=== PATIENT | male | born 1935 | race Caucasian/White ===

== ENCOUNTER 2017-12-09 11:52 | Inpatient (IN) | payer MEDICARE ==
[~2017-12-09] VITALS: Ht 180.3 cm; Wt 79.4 kg
[2017-12-09] MEDS ORDERED: IV NS 0.9% 500 ML BAG IV ONE (12:30)
[2017-12-09 12:41] LABS: BASOPHILS % (AUTO) 0.6 % (0.0-2.0); EOSINOPHILS % (AUTO) 1.4 % (0.0-6.0); HEMATOCRIT 38 % (39-51); HEMOGLOBIN 12.6 g/dL (13.5-17.5); LYMPHOCYTES # (AUTO) 0.5 /CMM (0.8-4.8); MEAN CORPUSCULAR HGB CONC 33 g/dl (31.0-36.0); MEAN CORPUSCULAR VOLUME 83 fL (80-96); MONOCYTES # (AUTO) 0.8 /CMM (0.1-1.30); MONOCYTES % (AUTO) 19.7 % (2.0-12.0); NEUTROPHILS # (AUTO) 2.8 /CMM (1.8-8.9); NEUTROPHILS % (AUTO) 65.3 % (43.0-81.0); PLATELET COUNT (AUTO) 183 /CMM (150-450); RDW COEFFICIENT OF VARIATION 17.7 (11.5-15.0); RED BLOOD CELL COUNT(AUTO) 4.61 MIL/uL (4.5-6.0); WHITE BLOOD COUNT (AUTO) 4.2 K/uL (4.3-11.0)
[2017-12-09 12:51] LABS: CARBON DIOXIDE 25 mmol/L (21-32); CHLORIDE 105 mmol/L (98-107); CREATININE 1.4 mg/dL (0.6-1.3); GLUCOSE 175 mg/dL (74-106); POTASSIUM 4.2 mmol/L (3.5-5.1); SODIUM SERUM 139 mmol/L (136-145); UREA NITROGEN, BLOOD 29 mg/dL (7-18)
[2017-12-09 12:55] LABS: INR 1.22 (0.85-1.15)
[2017-12-09 12:58] LABS: ALANINE AMINOTRANSFERASE 21 U/L (12-78); ALBUMIN 3.4 g/dL (3.4-5.0); ALKALINE PHOSPHATASE 195 U/L (46-116); ASPARTATE AMINOTRANSFERASE 26 U/L (15-37); BILIRUBIN,DIRECT 0.6 mg/dL (0.0-0.2); BILIRUBIN,TOTAL 1.2 mg/dL (0.2-1.0); TOTAL PROTEIN, SERUM 7.6 g/dL (6.4-8.2)
[2017-12-09 13:01] LABS: TROPONIN I 0.046 ng/mL (0.00-0.056)
[2017-12-09 13:10] LABS: SERUM AMMONIA 16 umol/L (11-32)
[2017-12-09] MEDS ORDERED: FAMO20TA8 PO (13:11)
[2017-12-09] MEDS ORDERED: ROSU10TA PO (13:11)
[2017-12-09] MEDS ORDERED: DIGO125T PO (13:11)
[2017-12-09 14:01] LABS: APPEARANCE,URINE Clear (CLEAR); BILIRUBIN,URINE SMALL (NEGATIVE); BLOOD, URINE Trace-lysed Ery/uL (NEGATIVE); COLOR,URINE Yellow (YELLOW); KETONES,URINE Trace (NEGATIVE); LEUKOCYTE ESTERASE ,URINE Negative (NEGATIVE); NITRITE, URINE Negative (NEGATIVE); PROTEIN,URINE 100 mg/dl (NEGATIVE); UGLUCOSE Negative (NEGATIVE); UROBILINOGEN,URINE 0.2 EU/dL (0.2)
--- NOTE | 2017-12-09 14:01 | NUR ---
JERMAINE BURCH (SENIOR RESTAURANT MANAGER) [phone]
[2017-12-09 14:06] LABS: BACTERIA,URINE Rare /HPF (None Seen); RBC,URINE 0-2 /HPF (0-2); SQUAMOUS EPITHELIAL CELL,UR Rare /HPF (None Seen); WBC,URINE 0-2 /HPF (0-3)
[2017-12-09] MEDS ORDERED: MAGNESIUM HYDROXIDE 30 ML UDC PO PRN (15:00)
[2017-12-09] MEDS ORDERED: MAG HYDROX/AL HYDROX/SIMETH 30 ML UDC PO PRN (15:00)
[2017-12-09] MEDS ORDERED: ONDANSETRON HCL/PF 4 MG/2 ML VIAL IVP PRN (15:00)
[2017-12-09] MEDS ORDERED: ACETAMINOPHEN 325 MG TABLET PO PRN (15:00)
[2017-12-09] MEDS ORDERED: TEMAZEPAM 15 MG CAPSULE PO PRN (15:00)
[2017-12-09] MEDS ORDERED: HYDROCODONE/APAP 5/325MG 1 EACH TABLET PO PRN (15:00)
[2017-12-09] MEDS ORDERED: MORPHINE SULFATE INJ 2 MG/ML DISP.SYRIN IV PRN (15:00)
[2017-12-09] MEDS ORDERED: FENTANYL PF 100MCG/2ML AMPUL IV PRN (15:30)
[2017-12-09 16:00] VITALS: BP 106/53
--- NOTE | 2017-12-09 16:00 | NUR ---
ms nr received a new admission from er, 81 year old male, came in w/ generalized weakness,aox3,not in any form of distress, hx of multiple falls from home, head abrations noted, negative fracture, denies pain at this time,will monitor patient's condition.
--- NOTE | 2017-12-09 17:00 | NUR ---
ms rn echo done w/ 16% ef, jimmy notified and will call dr. brown for consult.
--- NOTE | 2017-12-09 18:00 | NUR ---
ms rn venous doppler done w/ negative result, patient ate dinner ,tolerated well.
--- NOTE | 2017-12-09 18:37 | NUR ---
ms rn will endorse to can crimper for ifrah.
--- NOTE | 2017-12-09 19:05 | NUR ---
GIVING OFFICER OPENING NOTES: RECEIVED PT IN BED AND IS AWAKE AND A/O/X3. PT ON PHONE AT THIS TIME. PT ON TELE BOX AT THIS TIME. PT HAS IV ON R AC #20G AND IS PATENT AND INTACT. CURRENTLY S/L. CALL LIGHT WITHIN PT'S REACH. BED KEPT IN LOW, LOCKED POSITION, AND SIDE RAILS X 2UP. BED ALARM ACTIVATED. WILL CONTINUE TO MONITOR PT. Addendum: 12/10/17 at 0227 by ILIANA HARRIS RN *L AC #20G
[2017-12-09 20:00] VITALS: BP 116/65
[2017-12-09] MEDS: ATORVASTATIN 10 MG TABLET PO SCH (21:08)
--- NOTE | 2017-12-09 22:16 | NUR ---
BANKING ATTORNEY NOTES: DR. ALEXANDER AT BEDSIDE.
--- NOTE | 2017-12-09 23:47 | NUR ---
ASSEMBLY LEADER NOTES: PT REQUESTED FOR SLEEP AID. PT WAS ADMINISTERED RESTORIL. WILL CONTINUE TO MONITOR.
[2017-12-10] VITALS: BP 118/71
[2017-12-10 04:00] VITALS: BP 95/52
[2017-12-10 06:00] VITALS: BP 122/74
[2017-12-10 06:32] LABS: BASOPHILS % (AUTO) 0.8 % (0.0-2.0); EOSINOPHILS % (AUTO) 2.5 % (0.0-6.0); HEMATOCRIT 38 % (39-51); HEMOGLOBIN 12.6 g/dL (13.5-17.5); LYMPHOCYTES # (AUTO) 0.7 /CMM (0.8-4.8); LYMPHOCYTES % (AUTO) 15.5 % (20.0-44.0); MEAN CORPUSCULAR HGB CONC 33 g/dl (31.0-36.0); MEAN CORPUSCULAR VOLUME 82 fL (80-96); NEUTROPHILS % (AUTO) 61.2 % (43.0-81.0); PLATELET COUNT (AUTO) 179 /CMM (150-450); RDW COEFFICIENT OF VARIATION 17.5 (11.5-15.0); WHITE BLOOD COUNT (AUTO) 4.8 K/uL (4.3-11.0)
[2017-12-10 06:51] LABS: CHOLESTEROL 96 mg/dL (<200); HDL CHOLESTEROL 39 mg/dL (40-60); LDL 61 mg/dL (0-99); THYROID STIMULATING HORMONE 1.613 uIU/mL (0.358-3.74); TRIGLYCERIDES 46 mg/dL (30-150)
[2017-12-10 07:28] LABS: BAND % (MANUAL) 2 % (0.0-5.0); LYMPHOCYTES % (MANUAL) 13 % (16-48); MONOCYTES % (MANUAL) 15 % (0-11.0); NEUTROPHILS % (MANUAL) 68 (42-76)
[2017-12-10 07:29] LABS: EOSINOPHILS % (MANUAL) 2 % (0-4)
--- NOTE | 2017-12-10 07:29 | NUR ---
BANKRUPTCY ATTORNEY CLOSING NOTES: ALL NEEDS WERE ATTENDED AND ANTICIPATED FOR. PT IS RESTING IN BED COMFORTABLY. PT IS A/OX2-3 WITH PERIODS OF FORGETFULNESS. PT IS ON TELE BOX AND READING SHOWS A FIB 91 WITH PVCS. PT ON ROOM AIR AND TOLERATING WELL. PT HAS IV ON L AC #20G AND IS PATENT AND INTACT. CURRENTLY S/L. CALL LIGHT WITHIN PT'S REACH. BED ALARM ACTIVATED. BED KEPT IN LOW, LOCKED POSITION, AND SIDE RAILS X 2UP. ENDORSED TO AM NURSE FOR JUAN.
--- NOTE | 2017-12-10 07:30 | NUR ---
COLLEGE AND CAREER COUNSELOR NOTES PATIENT RECEIVED RESTING INSIDE ROOM. SLEEPING, EASILY AROUSABLE THROUGH VERBAL AND TACTILE STIMULI. PATIENT VERBALLY RESPONSIVE. BREATHING EVEN AND UNLABORED. NO SOB OR ACUTE DISTRESS NOTED AT THIS TIME. PATIENT DENIES ANY PAIN OR DISCOMFORT. PATIENT ON TELEMETRY, LINEN CONTROLLER WITH READING OF A-FIB WITH PVCs. PATIENT REMAINS CALM AND RELAXED. ALERT TO SELF AND PLACE, PATIENT NOTED TO BE A POOR HISTORIAN. RE-ORIENTED TO STAFF, TIME/DATE. WILL CONTINUE TO MONITOR. BED LOCKED AND IN LOW POSITION. BILATERAL UPPER SIDE RAILS UP AND LOCKED. CALL LIGHT WITHIN EASY REACH
[2017-12-10 07:32] LABS: DIGOXIN < 0.20 ng/mL (0.90-2.00)
[2017-12-10 08:00] VITALS: BP 115/69
[2017-12-10] MEDS: ASPIRIN EC 81 MG TABLET.DR PO SCH (08:15)
[2017-12-10] MEDS: PANTOPRAZOLE 40 MG TABLET.DR PO SCH (08:15)
[2017-12-10 09:35] LABS: CALCIUM, SERUM 8.8 mg/dL (8.5-10.1); CARBON DIOXIDE 23 mmol/L (21-32); CHLORIDE 105 mmol/L (98-107); CREATININE 1.3 mg/dL (0.6-1.3); GLUCOSE 110 mg/dL (74-106); MAGNESIUM 1.8 mg/dL (1.8-2.4); PHOSPHORUS 3.5 mg/dL (2.5-4.9); POTASSIUM 3.9 mmol/L (3.5-5.1); SODIUM SERUM 142 mmol/L (136-145); UREA NITROGEN, BLOOD 26 mg/dL (7-18)
--- NOTE | 2017-12-10 10:07 | NUR ---
MS RN NOTES PATIENT SEEN AND EXAMINED BY PT. PER PHYSICAL THERAPIST, PATIENT WILL NOT BE PICKED UP FOR PT REHABILITATION PATIENT IS ABLE TO PERFORM ACTIVITIES BY [facility]. RECOMMENDED THAT PATIENT REQUIRES [facility] WITH AMBULATION/TRANSFERS. MADE AWARE. WILL CONTINUE TO MONITOR
[2017-12-10] MEDS: DIGOXIN 0.125 MG TABLET PO SCH (11:55)
--- NOTE | 2017-12-10 13:43 | NUR ---
WOUND CARE CONSULT: PT PRESENTS WITH ARMANI SCORE CURRENTLY 19. PT HAS DRY ABRASION TO HEAD AND BRUISE TO CHIN, PRESENT ON ADMISSION. LEFT LATERAL ANKLE HAS SCAR WITH CALLUSED SKIN. PT STATES PREVIOUSLY HAD A WOUND ON LEFT LATERAL ANKLE. WILL SEE PRN. RECOMMENDATIONS MADE FOR SKIN PROTECTION. MD IN AGREEMENT WITH PLAN OF CARE. Addendum: 12/10/17 at 1346 by JUAN PRATT WNDNU Amended: Links added.
[2017-12-10] MEDS ORDERED: Z GUARD REMEDY 4 OZ OINT TP PRN (14:00)
[2017-12-10 16:00] VITALS: BP 110/66
--- NOTE | 2017-12-10 18:51 | NUR ---
MS RN NOTES PATIENT RESTING INSIDE ROOM. AWAKE, ALERT AND ORIENTED 2-3. ABLE TO MAKE NEEDS KNOWN AND FOLLOW SIMPLE INSTRUCTIONS. PATIENT BREATHING EVEN AND UNLABORED. NO SOB OR ACUTE DISTRESS NOTED AT THIS TIME. PATIENT DENIES ANY PAIN OR DISCOMFORT. NO CHANGES IN LOC NOTED AT THIS TIME. PATIENT REMAINS AFEBRILE, SKIN DRY AND WARM TO TOUCH. WILL ENDORSE TO INCOMING SHIFT FOR JUAN. BED LOCKED AND IN LOW POSITION. BILATERAL UPPER SIDE RAILS UP AND LOCKED. BED ALARM ON. CALL LIGHT WITHIN EASY REACH
--- NOTE | 2017-12-10 19:15 | NUR ---
MS RN NOTES RECEIVED PT SITTING UP IN BED, A/O X 2, VERBALLY RESPONSIVE. NO DISTRESS, NO SOB NOTED AT THIS TIME, RESPIRATION IS EVEN AND UNLABORED. FRIEND AT BEDSIDE. IV SITE ON LAC INTACT AND PATENT. NO S/S OF INFILTRATION NOTED. NO C/O PAIN OR DISCOMFORT AT THIS TIME. ALL NEEDS ATTENDED AND MET. KEPT COMFORTABLE. SAFETY PRECAUTIONS OBSERVED. CALL LIGHT WITHIN REACH. WILL CONTINUE TO MONITOR.
[2017-12-10 20:00] VITALS: BP_SYST 105; BP_SYST 99; BP_DIAS 58; BP_DIAS 60
[2017-12-10] MEDS: CARVEDILOL 3.125 MG TABLET PO SCH (21:00)
[2017-12-10] MEDS: ATORVASTATIN 10 MG TABLET PO SCH (21:46)
--- NOTE | 2017-12-11 06:23 | NUR ---
MS RN NOTES PT IN BED, RESTING COMFORTABLY, AROUSES EASILY, A/O X 2, VERBALLY RESPONSIVE. NO DISTRESS, NO SOB NOTED AT THIS TIME, RESPIRATION IS EVEN AND UNLABORED. IV SITE ON LAC INTACT AND PATENT. NO S/S OF INFILTRATION NOTED. DENIES ANY PAIN OR DISCOMFORT AT THIS TIME. ALL DUE MEDS GIVEN. PT IS AMBULATORY WITH [facility]. ALL NEEDS ATTENDED AND MET. KEPT COMFORTABLE. SAFETY PRECAUTIONS OBSERVED. CALL LIGHT WITHIN REACH. WILL ENDORSE TO NEXT SHIFT FRO JUAN.
[2017-12-11] MEDS: PANTOPRAZOLE 40 MG TABLET.DR PO SCH (07:30)
[2017-12-11 07:35] LABS: FREE PSA 0.85 ng/mL (0.00-45); PROSTATE SPECIFIC ANTIGEN SCR 4.12 ng/mL (0.00-4.00)
--- NOTE | 2017-12-11 07:40 | NUR ---
MS RN NOTES PATIENT RECEIVED RESTING INSIDE ROOM, AWAKE, ALERT AND ORIENTED 2-3 WITH PERIODS OF FORGETFULNESS. VERBALLY RESPONSIVE AND RESPONDS TO VERBAL AND TACTILE STIMULI. BREATHING EVEN AND UNLABORED. NO SOB OR ACUTE DISTRESS NOTED AT THIS TIME. PATIENT AFEBRILE, SKIN DRY AND WARM TO TOUCH. DENIES ANY PAIN OR DISCOMFORT AT THIS TIME. NO CHANGES IN LOC NOTED. RECEIVED REPORT THAT PATIENT NPO SINCE MIDNIGHT, AWAITING ABD US. PATIENT REMINDED OF DIET STATUS AND VERBALIZED UNDERSTANDING. WILL CONTINUE TO MONITOR. BED LOCKED AND IN LOW POSITION. BILATERAL UPPER SIDE RAILS UP AND LOCKED. CALL LIGHT WITHIN EASY REACH
[2017-12-11 08:33] VITALS: BP 115/80
[2017-12-11] MEDS: CARVEDILOL 3.125 MG TABLET PO SCH ×2 (09:00→21:00)
[2017-12-11] MEDS: ASPIRIN EC 81 MG TABLET.DR PO SCH (09:00)
[2017-12-11] MEDS: DIGOXIN 0.125 MG TABLET PO SCH (09:00)
[2017-12-11 16:11] VITALS: BP 112/74
--- NOTE | 2017-12-11 18:49 | NUR ---
MS RN NOTES PATIENT RESTING INSIDE ROOM. AWAKE, ALERT AND ORIENTED. ABLE TO MAKE NEEDS KNOWN AND FOLLOW SIMPLE INSTRUCTIONS.VERBALLY RESPONSIVE AND RESPONDS TO VERBAL AND TACTILE STIMULI. BREATHING EVEN AND UNLABORED. NO SOB OR ACUTE DISTRESS NOTED. PATIENT DENIES ANY PAIN OR DISCOMFORT AT THIS TIME. PATIENT SEEN AND EXAMINED BY KINDRA HERNANDEZ NP. MADE AWARE OF PT RECOMMENDATION FOR [facility] UPON DISCHARGE. PATIENT REMAINS AFEBRILE, SKIN DRY AND WARM TO TOUCH. WILL ENDORSE TO INCOMING SHIFT FOR JUAN. BED LOCKED AND IN LOW POSITION. BILATERAL UPPER SIDE RAILS UP AND LOCKED. CALL LIGHT WITHIN EASY REACH
--- NOTE | 2017-12-11 19:15 | NUR ---
MS RN NOTES RECEIVED PT IN BED, A/O X 2, VERBALLY RESPONSIVE, FORGETFUL. NO DISTRESS, NO SOB NOTED AT THIS TIME, RESPIRATION IS EVEN AND UNLABORED. VISITORS AT BEDSIDE. IV SITE ON LAC INTACT AND PATENT. NO S/S OF INFILTRATION NOTED. NO C/O PAIN OR DISCOMFORT AT THIS TIME. ALL NEEDS ATTENDED AND MET. KEPT COMFORTABLE. SAFETY PRECAUTIONS OBSERVED. CALL LIGHT WITHIN REACH. WILL CONTINUE TO MONITOR.
[2017-12-11 20:00] VITALS: BP 108/74
[2017-12-11] MEDS: ATORVASTATIN 10 MG TABLET PO SCH (21:17)
--- NOTE | 2017-12-11 21:55 | NUR ---
report given to evelyne buitrago.
--- NOTE | 2017-12-11 22:38 | NUR ---
pt transferred via wheelchair to ms 2, bed 206-2 in stable condition, no distress no sob noted. pt a/0 x 2-3 with episodes of forgetfulness. all due meds given, endorsed to evelyne buitrago accordingly. all belongings sent with the pt.
--- NOTE | 2017-12-11 22:40 | NUR ---
RN NOTES RECEIVED PT. FROM [facility], FROM ANOTHER RN DONAVON, PT IS A/OX2-3, , FENIES PAIN, NO SOB, ALL LIGHT WITHIN REACH, [id number], WILL CONTINUE TO MONITOR
[2017-12-12 06:39] LABS: GAMMA GLUTAMYL TRANSFERASE 85 U/L (5-85)
[2017-12-12 06:47] LABS: ALANINE AMINOTRANSFERASE 18 U/L (12-78); ALBUMIN 3.3 g/dL (3.4-5.0); ALKALINE PHOSPHATASE 168 U/L (46-116); ASPARTATE AMINOTRANSFERASE 24 U/L (15-37); BILIRUBIN,TOTAL 1.1 mg/dL (0.2-1.0); CALCIUM, SERUM 8.6 mg/dL (8.5-10.1); CARBON DIOXIDE 24 mmol/L (21-32); CHLORIDE 106 mmol/L (98-107); CREATININE 1.3 mg/dL (0.6-1.3); GLUCOSE 97 mg/dL (74-106); SODIUM SERUM 141 mmol/L (136-145); TOTAL PROTEIN, SERUM 7.1 g/dL (6.4-8.2); UREA NITROGEN, BLOOD 27 mg/dL (7-18)
[2017-12-12 06:49] LABS: BASOPHILS # (AUTO) 0.1 /CMM (0.0-0.2); BASOPHILS % (AUTO) 1.2 % (0.0-2.0); EOSINOPHILS % (AUTO) 5.2 % (0.0-6.0); HEMATOCRIT 36 % (39-51); HEMOGLOBIN 11.9 g/dL (13.5-17.5); LYMPHOCYTES # (AUTO) 0.7 /CMM (0.8-4.8); LYMPHOCYTES % (AUTO) 15.1 % (20.0-44.0); MEAN CORPUSCULAR HGB CONC 33 g/dl (31.0-36.0); MEAN CORPUSCULAR VOLUME 82 fL (80-96); MONOCYTES # (AUTO) 0.8 /CMM (0.1-1.30); MONOCYTES % (AUTO) 18.8 % (2.0-12.0); NEUTROPHILS # (AUTO) 2.6 /CMM (1.8-8.9); NEUTROPHILS % (AUTO) 59.7 % (43.0-81.0); PLATELET COUNT (AUTO) 170 /CMM (150-450); RDW COEFFICIENT OF VARIATION 18.8 (11.5-15.0); RED BLOOD CELL COUNT(AUTO) 4.37 MIL/uL (4.5-6.0); WHITE BLOOD COUNT (AUTO) 4.4 K/uL (4.3-11.0)
--- NOTE | 2017-12-12 07:00 | NUR ---
RN NOTES AWAKE, MORNING CARE RENDERED, CALL LIGHT WITHIN REACH, [id number], PT. NEEDS ATTENDED
--- NOTE | 2017-12-12 07:45 | NUR ---
RN NOTES PATIENT ALERT AND ORIENTED X3, VERY PLEASANT, DENIES PAIN OR DISCOMFORT AT THIS TIME, PATIENT IS EXCITED TO GO HOME TODAY, NO SOB NOTED, NEEDS ATTENDED AND MET, CALL LIGHT WITHIN REACH, WILL CONTINUE TO MONITOR.
[2017-12-12 08:13] LABS: IMMUNOGLOBULIN A, SERUM 252 mg/dL (61-437); IMMUNOGLOBULIN G, SERUM 1122 mg/dL (700-1600); IMMUNOGLOBULIN M, SERUM 464 mg/dL (15-143)
[2017-12-12 08:40] VITALS: BP 124/83
[2017-12-12 08:44] VITALS: BP 124/83
[2017-12-12] MEDS: PANTOPRAZOLE 40 MG TABLET.DR PO SCH (08:44)
[2017-12-12] MEDS: ASPIRIN EC 81 MG TABLET.DR PO SCH (08:44)
[2017-12-12] MEDS: CARVEDILOL 3.125 MG TABLET PO SCH (08:44)
[2017-12-12] MEDS: DIGOXIN 0.125 MG TABLET PO SCH (08:44)
[2017-12-12] MEDS ORDERED: FERROUS SULFATE (325 MG) 325 MG/TAB TABLET PO SCH (09:00)
[2017-12-12 11:09] LABS: EOSINOPHILS % (MANUAL) 5 % (0-4); LYMPHOCYTES % (MANUAL) 9 % (16-48); MONOCYTES % (MANUAL) 13 % (0-11.0); NEUTROPHILS % (MANUAL) 73 (42-76)
--- NOTE | 2017-12-12 12:00 | NUR ---
BAR MACHINE OPERATOR MULTIPLE SPINDLE PATIENT SEEN BY KINDRA HERNANDEZ AUTOMATIC SHIRRING MACHINE OPERATOR, CLEARED PATIENT FOR DISCHARGE, ORDER NOTED AND CARRIED OUT. PATIENT'S CAREGIVER AT BEDSIDE, PATIENT A/OX3, SKIN ASSESSMENT COMPLETED, PHOTOS TAKEN AND PLACED IN CHART, BELONGINGS RECONCILED, PIV REMOVED AND APPLIED PRESSURE, PATIENT AND CAREGIVER RECEIVED DISCHARGE INSTRUCTIONS AND VERBALIZED UNDERSTANDING, SIGNED DISCHARGE PAPERWORKS. DME WALKER PROVIDED TO THE PATIENT, LEFT THE FACILITY IN NO DISTRESS.
[2017-12-12 12:15] LABS: *SPE A/G RATIO 1.1 (0.7-1.7); *SPE ALBUMIN 3.4 g/dL (2.9-4.4); *SPE ALPHA-1-GLOBULIN 0.3 g/dL (0.0-0.4); *SPE ALPHA-2-GLOBULIN 0.7 g/dL (0.4-1.0); *SPE BETA GLOBULIN 0.9 g/dL (0.7-1.3); *SPE GLOBULIN, TOTAL 3.2 g/dL (2.2-3.9); *SPE M-SPIKE Not Observed g/dL (Not Observed); *SPEGAMMA GLOBULIN 1.3 g/dL (0.4-1.8)
== END 2017-12-12 12:00 | disposition home health service (06) | DRG 73 ==
LOC: ER 11:55 → TELE 14:10 → MED 12-10 08:50 → MEDSG2 12-11 22:28
PROVIDERS: ADMIT Nurse Practitioner Acute Care; ATTEND Nurse Practitioner Acute Care
DX: G90.8 Other disorders of autonomic nervous system (principal); G93.40 Encephalopathy, unspecified; N17.0 Acute kidney failure with tubular necrosis; I50.23 Acute on chronic systolic (congestive) heart failure; I13.0 Hypertensive heart and chronic kidney disease with heart failure and stage 1 through stage 4 chronic kidney disease, or unspecified chronic kidney disease; F03.90 Unspecified dementia, unspecified severity, without behavioral disturbance, psychotic disturbance, mood disturbance, and anxiety; E11.22 Type 2 diabetes mellitus with diabetic chronic kidney disease; I48.2 Chronic atrial fibrillation; D50.9 Iron deficiency anemia, unspecified; I36.1 Nonrheumatic tricuspid (valve) insufficiency; W01.0XXA Fall on same level from slipping, tripping and stumbling without subsequent striking against object, initial encounter; I25.5 Ischemic cardiomyopathy; Y92.009 Unspecified place in unspecified non-institutional (private) residence as the place of occurrence of the external cause; N18.9 Chronic kidney disease, unspecified; E78.5 Hyperlipidemia, unspecified; I25.10 Atherosclerotic heart disease of native coronary artery without angina pectoris; K21.9 Gastro-esophageal reflux disease without esophagitis; K74.60 Unspecified cirrhosis of liver; R29.6 Repeated falls; R62.7 Adult failure to thrive; Z95.1 Presence of aortocoronary bypass graft; I35.0 Nonrheumatic aortic (valve) stenosis; I34.0 Nonrheumatic mitral (valve) insufficiency; R53.1 Weakness; R74.8 Abnormal levels of other serum enzymes; G89.29 Other chronic pain; Z86.19 Personal history of other infectious and parasitic diseases
CPT/HCPCS: 36415; 70450-TC; 71045-TC; 72125-TC; 73610-TC; 76700-TC; 80048-TC; 80053-TC; 80061-TC; 80076-TC; 80162-TC; 81000-TC; 82140-TC; 82728-TC; 82746; 82784; 82977-TC; 83540-TC; 83735-TC; 84100-TC; 84153-TC; 84154-TC; 84155; 84165; 84443-TC; 84484-TC; 85025-TC; 85730-TC; 86334; 87081-TC; 87086-TC; 93307-TC; 93970-TC; A4606; J7040; Z7610

== ENCOUNTER 2018-02-13 17:08 | Inpatient (IN) | payer MEDICARE ==
[~2018-02-13] VITALS: Ht 170.2 cm; Wt 47.6 kg
[~2018-02-13 17:08] MED LIST: DIGO125T PO; FAMO20TA8 PO; ROSU10TA PO
--- NOTE | 2018-02-13 17:08 | NUR ---
BIB FRIEND C/O MORE ALTERED THAT USUAL, ALSO C/O WORSENING LEFT LOWER LEG BLISTERS, AND MULTIPLE UNWITNESSED FALL PER FRIEND REPORT
[2018-02-13 18:07] LABS: BASOPHILS # (AUTO) 0.1 /CMM (0.0-0.2); BASOPHILS % (AUTO) 1.4 % (0.0-2.0); EOSINOPHILS % (AUTO) 1.3 % (0.0-6.0); HEMATOCRIT 41 % (39-51); HEMOGLOBIN 13.5 g/dL (13.5-17.5); LYMPHOCYTES # (AUTO) 0.4 /CMM (0.8-4.8); LYMPHOCYTES % (AUTO) 10.5 % (20.0-44.0); MEAN CORPUSCULAR HGB CONC 33 g/dl (31.0-36.0); MEAN CORPUSCULAR VOLUME 81 fL (80-96); MONOCYTES # (AUTO) 0.8 /CMM (0.1-1.30); MONOCYTES % (AUTO) 19.7 % (2.0-12.0); NEUTROPHILS # (AUTO) 2.7 /CMM (1.8-8.9); NEUTROPHILS % (AUTO) 67.1 % (43.0-81.0); PLATELET COUNT (AUTO) 211 /CMM (150-450); RDW COEFFICIENT OF VARIATION 18.1 (11.5-15.0); RED BLOOD CELL COUNT(AUTO) 5.11 MIL/uL (4.5-6.0); WHITE BLOOD COUNT (AUTO) 4.1 K/uL (4.3-11.0)
--- NOTE | 2018-02-13 18:11 | NUR ---
RFA #20 IV ACCESS. BLOOD SAMPLE COLLECTED SENT TO LAB
--- NOTE | 2018-02-13 18:16 | NUR ---
PT TAKEN TO CT
[2018-02-13 18:17] LABS: CALCIUM, SERUM 9.9 mg/dL (8.5-10.1); CARBON DIOXIDE 23 mmol/L (21-32); CHLORIDE 100 mmol/L (98-107); CREATININE 1.7 mg/dL (0.6-1.3); GLUCOSE 109 mg/dL (74-106); POTASSIUM 4.5 mmol/L (3.5-5.1); SODIUM SERUM 134 mmol/L (136-145); UREA NITROGEN, BLOOD 50 mg/dL (7-18)
[2018-02-13 18:22] LABS: ALANINE AMINOTRANSFERASE 17 U/L (12-78); ALKALINE PHOSPHATASE 222 U/L (46-116); ASPARTATE AMINOTRANSFERASE 24 U/L (15-37); BILIRUBIN,DIRECT 0.9 mg/dL (0.0-0.2); BILIRUBIN,TOTAL 1.4 mg/dL (0.2-1.0); LIPASE 114 U/L (73-393); TOTAL PROTEIN, SERUM 7.6 g/dL (6.4-8.2)
[2018-02-13] MEDS ORDERED: IV NS 0.9% 1,000 ML BAG IV ONE (19:00)
[2018-02-13] MEDS ORDERED: METF-440 PO (19:01)
[2018-02-13 19:19] LABS: BAND % (MANUAL) 5 % (0.0-5.0); BASOPHILS % (MANUAL) 0 % (0.0-2.0); EOSINOPHILS % (MANUAL) 2 % (0-4); LYMPHOCYTES % (MANUAL) 14 % (16-48); MONOCYTES % (MANUAL) 16 % (0-11.0); NEUTROPHILS % (MANUAL) 63 (42-76)
--- NOTE | 2018-02-13 19:25 | NUR ---
GAVE REPORT TO TERE FOR JUAN
--- NOTE | 2018-02-13 19:25 | NUR ---
URINE SAMPLE COLLECTED SENT TO LAB
--- NOTE | 2018-02-13 19:33 | NUR ---
PT APPEARS TO BE RESTING COMFORTABLY. PT IS AWAITING ADMISSSION.
[2018-02-13] MEDS ORDERED: DIGOXIN 0.25 MG TABLET ONE (19:39)
[2018-02-13 19:41] LABS: APPEARANCE,URINE Clear (CLEAR); BILIRUBIN,URINE SMALL (NEGATIVE); BLOOD, URINE Negative Ery/uL (NEGATIVE); COLOR,URINE Yellow (YELLOW); KETONES,URINE Negative (NEGATIVE); LEUKOCYTE ESTERASE ,URINE Negative (NEGATIVE); NITRITE, URINE Negative (NEGATIVE); PROTEIN,URINE 100 mg/dl (NEGATIVE); UGLUCOSE Negative (NEGATIVE); UROBILINOGEN,URINE 0.2 EU/dL (0.2)
[2018-02-13] MEDS ORDERED: FUROSEMIDE 40 MG/4 ML VIAL IV ONE (20:00)
[2018-02-13] MEDS ORDERED: DIGOXIN 0.25 MG TABLET PO ONE (20:00)
--- NOTE | 2018-02-13 20:03 | NUR ---
Swapna HERNANDEZ AGACNP-BC IS AT THE BEDSIDE EVALUATING THE PT.
[2018-02-13 20:04] LABS: BACTERIA,URINE Few /HPF (None Seen); RBC,URINE 0-2 /HPF (0-2); SQUAMOUS EPITHELIAL CELL,UR Few /HPF (None Seen); WBC,URINE 0-2 /HPF (0-3)
[2018-02-13] MEDS ORDERED: FUROSEMIDE 40 MG/4 ML VIAL ONE (20:08)
[2018-02-13] MEDS ORDERED: FUROSEMIDE 20 MG/2 ML VIAL ONE (20:08)
--- NOTE | 2018-02-13 20:15 | NUR ---
ASSIGNED TO TELE RM#: [id number], DX: CHF, ACCEPTING: [facility]-
[2018-02-13] MEDS ORDERED: DEXTROSE 50%-WATER 50 ML DISP.SYRIN IV PRN (20:30)
[2018-02-13] MEDS ORDERED: MAG HYDROX/AL HYDROX/SIMETH 30 ML UDC PO PRN (20:30)
[2018-02-13] MEDS ORDERED: TEMAZEPAM 15 MG CAPSULE PO PRN (20:30)
[2018-02-13] MEDS ORDERED: ONDANSETRON HCL/PF 4 MG/2 ML VIAL IVP PRN (20:30)
[2018-02-13] MEDS ORDERED: HYDROCODONE/APAP 5/325MG 1 EACH TABLET PO PRN (20:30)
[2018-02-13] MEDS ORDERED: ACETAMINOPHEN 325 MG TABLET PO PRN (20:30)
[2018-02-13] MEDS ORDERED: MAGNESIUM HYDROXIDE 30 ML UDC PO PRN (20:30)
--- NOTE | 2018-02-13 20:38 | NUR ---
CALLING REPORT TO TELE NURSE.
--- NOTE | 2018-02-13 20:42 | NUR ---
REPORT GIVEN TO ALONSO ZAMORA
--- NOTE | 2018-02-13 20:46 | NUR ---
PT BEING TRANSPORTED TO TELE [facility]IA [facility] PER PROTOCOL.
[2018-02-13] MEDS ORDERED: VANCOMYCIN 1 GM in IV D5W 250 ML IV SCH (21:00)
[2018-02-13] MEDS ORDERED: ATORVASTATIN 10 MG TABLET PO SCH (22:00)
--- NOTE | 2018-02-13 22:30 | NUR ---
EAMON RN NOTES RECEIVED REPORT FROM ER NURSE TERE. RECEIVED PT IN [facility] A/O WITH EPISODES OF CONFUSION. PT IS ON TELEMONITOR AFIB CONTROL WITH HR OF 81,ON RA WITH SPO2 OF 97%. NO SOB,NO COMPLAINE OF PAIN, NO RESPIRATORY DISTRESS NOTED AT THIS TIME. LL FOOT BLISTERS NOTED. IV LINE RFA 20 G INTACT, PATIENT NOTED. MRSA SWAB IS PENDING. WILL CONTINUE TO MONITOR.
[2018-02-13] MEDS: BLOOD SUGAR DIAGNOSTIC 1 EACH STRIP IN SCH (22:35)
[2018-02-14] VITALS (7 sets, daily range): BP systolic 98–105; BP diastolic 53–70
--- NOTE | 2018-02-14 07:00 | NUR ---
RN NOTE RECEIVED PT ON BED, A/O X2 WITH PERIODS OF CONFUSION. ON RA , RESPIRATION EVEN AND UNLABORED, NO SOB NOTED, ON TELE A. FIB CONTROL , HR IN 80'S , L FA IV SITE G 20 CDI, SR UP x3, CALL LIGHT WITHIN EASY REACH, BED LOCKED AND IN LOWEST POSITION , WILL CONTINUE TO MONITOR PT CLOSELY AND NOTIFY MD FOR ANY SIGNIFICANT CHANGES.
[2018-02-14 07:02] LABS: BASOPHILS % (AUTO) 1.2 % (0.0-2.0); EOSINOPHILS % (AUTO) 3.2 % (0.0-6.0); HEMATOCRIT 40 % (39-51); HEMOGLOBIN 13.1 g/dL (13.5-17.5); LYMPHOCYTES # (AUTO) 0.5 /CMM (0.8-4.8); LYMPHOCYTES % (AUTO) 12.5 % (20.0-44.0); MEAN CORPUSCULAR HGB CONC 33 g/dl (31.0-36.0); MEAN CORPUSCULAR VOLUME 83 fL (80-96); MONOCYTES # (AUTO) 0.7 /CMM (0.1-1.30); MONOCYTES % (AUTO) 19.2 % (2.0-12.0); NEUTROPHILS # (AUTO) 2.5 /CMM (1.8-8.9); NEUTROPHILS % (AUTO) 63.9 % (43.0-81.0); PLATELET COUNT (AUTO) 225 /CMM (150-450); RDW COEFFICIENT OF VARIATION 19.2 (11.5-15.0); RED BLOOD CELL COUNT(AUTO) 4.79 MIL/uL (4.5-6.0); WHITE BLOOD COUNT (AUTO) 3.9 K/uL (4.3-11.0)
[2018-02-14] MEDS ORDERED: FEE PK DOSING 1 MIN EA MC ONE (07:03)
[2018-02-14 07:12] LABS: CALCIUM, SERUM 9.2 mg/dL (8.5-10.1); CARBON DIOXIDE 26 mmol/L (21-32); CHLORIDE 103 mmol/L (98-107); CREATININE 1.7 mg/dL (0.6-1.3); GLUCOSE 78 mg/dL (74-106); MAGNESIUM 1.9 mg/dL (1.8-2.4); PHOSPHORUS 4.5 mg/dL (2.5-4.9); POTASSIUM 4.2 mmol/L (3.5-5.1); SODIUM SERUM 140 mmol/L (136-145); UREA NITROGEN, BLOOD 48 mg/dL (7-18)
[2018-02-14 07:15] LABS: CHOLESTEROL 99 mg/dL (<200); HDL CHOLESTEROL 23 mg/dL (40-60); LDL 74 mg/dL (0-99); TRIGLYCERIDES 51 mg/dL (30-150)
[2018-02-14] MEDS: PANTOPRAZOLE 40 MG TABLET.DR PO SCH (08:03)
[2018-02-14] MEDS: DIGOXIN 0.125 MG TABLET PO SCH (08:03)
[2018-02-14] MEDS: BLOOD SUGAR DIAGNOSTIC 1 EACH STRIP IN SCH ×4 (08:04→22:02)
[2018-02-14 10:21] LABS: TROPONIN I 0.058 ng/mL (0.00-0.056)
[2018-02-14 11:58] LABS: BAND % (MANUAL) 2 % (0.0-5.0); EOSINOPHILS % (MANUAL) 4 % (0-4); LYMPHOCYTES % (MANUAL) 8 % (16-48); MONOCYTES % (MANUAL) 16 % (0-11.0); NEUTROPHILS % (MANUAL) 70 (42-76)
--- NOTE | 2018-02-14 14:07 | NUR ---
RN NOTE DR LOREDO NOTIFED REGARDING TROPONIN 0.058 , CONTINUE TO MONITOR .
[2018-02-14 14:21] LABS: THYROID STIMULATING HORMONE 3.291 uIU/mL (0.358-3.74)
[2018-02-14] MEDS: INSULIN REGULAR, HUMAN 100 UNIT/ML 3 ML VIAL SQ PRN (17:17)
--- NOTE | 2018-02-14 18:32 | NUR ---
RN NOTES PT REMANS STABLE , L FA IV SITE CDI, DRESSING TO L LOWER LEG CDI, SR UP x3, CALL LIGHT WITHIN EASY REACH, BED LOCKED AND IN LOWEST POSITION , WILL ENDOSE TO MANAGER PLANNING NURSE FOR JUAN
--- NOTE | 2018-02-14 20:00 | NUR ---
MS JUDD INITIAL NOTES RECIVED REPORT FORM AM NURSE , CHECKED THE PT HE'S WAKE AND ALERT , DENIES ANY CHEST PAIN OR ANY DISCOMFORT. RE-ORINETED HIM HOT USED THE CALL LIGHT AND USE IT IF HE NEEDS SOME HELPED. KEPT HIM WARM AND COMFORTABLE AT ALL TIMES. PLACE CALL LIGHT AT REACH. BED ALARM SET FOR SAFETY.
[2018-02-14] MEDS: VANCOMYCIN 0.75 GM in IV D5W 250 ML IV SCH (20:48)
[2018-02-15] VITALS (7 sets, daily range): BP systolic 98–118; BP diastolic 61–76
--- NOTE | 2018-02-15 | NUR ---
REDRYING MACHINE OPERATOR/NOTES PT SLEEPING COMFORTABLY IN BED WITHOUT ANT ACUTE DISTRESS NOTED. VANCOMYCIN IVP BAG WAS INFUSED NO SIGNS OF ADVERSE REACTION NOTED. WILL CONTINUE MONITORING. PLACE CALL LIGHT AT REACH.
[2018-02-15] MEDS: BLOOD SUGAR DIAGNOSTIC 1 EACH STRIP IN SCH ×4 (06:20→21:33)
[2018-02-15] MEDS: PANTOPRAZOLE 40 MG TABLET.DR PO SCH ×2 (06:20→09:08)
--- NOTE | 2018-02-15 06:24 | NUR ---
MS SUPERVISOR MAINSPRING FABRICATION NOTES' BLOOD SUGAR 83, NO INSULIN COVERAGES GIVEN .NO SIGNS OF HYPO GLYCEMIA NOTED. ROUTINE MED GIVEN ORDERED. MORNING CARE ALSO DONE. DRESSING STILL DRY AND INTACT. PT WATCHING TV AT THIS TIME. WILL CONTINUE TO MONITOR. PLACE CALL LIGHT AT REACH.
--- NOTE | 2018-02-15 07:53 | NUR ---
MS TEST FIXTURE ASSEMBLER CLOSING NOTES' PT AND WATCHING TV AT THIS TIME. BLOOD SUGAR TAKEN 83 NO SIGNS OF HYPO GLYCEMIA NOTED. SLEPT WELL AND STABLE JUANITA THE NIGHT. ALL DUE MEDS GIVEN AND ALL NEEDS MET. ENDORSE TO AM NURSE FOR CONTINUITY OF CARE.PLACE CALL LIGHT AT REACH.
[2018-02-15 07:56] LABS: CARBON DIOXIDE 25 mmol/L (21-32); CHLORIDE 101 mmol/L (98-107); CREATININE 1.6 mg/dL (0.6-1.3); GLUCOSE 92 mg/dL (74-106); POTASSIUM 3.9 mmol/L (3.5-5.1); SODIUM SERUM 136 mmol/L (136-145); UREA NITROGEN, BLOOD 43 mg/dL (7-18)
[2018-02-15 08:23] LABS: BASOPHILS % (AUTO) 0.9 % (0.0-2.0); EOSINOPHILS % (AUTO) 3.8 % (0.0-6.0); HEMATOCRIT 39 % (39-51); HEMOGLOBIN 12.8 g/dL (13.5-17.5); LYMPHOCYTES # (AUTO) 0.4 /CMM (0.8-4.8); LYMPHOCYTES % (AUTO) 9.8 % (20.0-44.0); MEAN CORPUSCULAR HGB CONC 33 g/dl (31.0-36.0); MEAN CORPUSCULAR VOLUME 83 fL (80-96); MONOCYTES # (AUTO) 0.8 /CMM (0.1-1.30); MONOCYTES % (AUTO) 19.7 % (2.0-12.0); NEUTROPHILS # (AUTO) 2.6 /CMM (1.8-8.9); NEUTROPHILS % (AUTO) 65.8 % (43.0-81.0); PLATELET COUNT (AUTO) 200 /CMM (150-450); RDW COEFFICIENT OF VARIATION 18.5 (11.5-15.0); RED BLOOD CELL COUNT(AUTO) 4.71 MIL/uL (4.5-6.0); WHITE BLOOD COUNT (AUTO) 3.9 K/uL (4.3-11.0)
[2018-02-15] MEDS: DIGOXIN 0.125 MG TABLET PO SCH (09:09)
--- NOTE | 2018-02-15 09:15 | NUR ---
RN INITIAL NOTES: RECEIVED REPORT FROM ALONSO [place]. PATIENT RESTING IN BED .PATIENT AOX2-3. NONLABORED BREATHING NOTED ON ROOM AIR. DENYING PAIN AT THE MOMENT. NO FACIAL GRIMACING NOTED. DENYING DIZZINESS. IV SITE ON LEFT FOREARM PATENT AND INTACT.
[2018-02-15 09:32] LABS: MONOCYTES % (MANUAL) 17 % (0-11.0)
[2018-02-15 09:33] LABS: EOSINOPHILS % (MANUAL) 4 % (0-4); LYMPHOCYTES % (MANUAL) 11 % (16-48); NEUTROPHILS % (MANUAL) 68 (42-76)
--- NOTE | 2018-02-15 12:29 | NUR ---
PATIENT REFUSED INSULIN, STATING HE IS "NOT TOO HUNGRY." BENEFITS AND RISKS EXPLAINED. WILL CONTINUE TO OFFER PATIENT SNACKS
[2018-02-15] MEDS: INSULIN REGULAR, HUMAN 100 UNIT/ML 3 ML VIAL SQ PRN ×2 (17:54→21:34)
--- NOTE | 2018-02-15 19:15 | NUR ---
RN CLOSING NOTES: PATIENT RESTING IN BED .PATIENT AOX2-3. NONLABORED BREATHING NOTED ON ROOM AIR. DENYING PAIN AT THE MOMENT. NO FACIAL GRIMACING NOTED. DENYING DIZZINESS. IV SITE ON LEFT FOREARM PATENT AND INTACT. FALL PRECAUTIONS IMPLEMENTED THROUGHOUT SHIFT. PATIENT KEPT CLEAN AND DRY THROUGHOUT SHIFT. WOUND CARE DONE THROUGHOUT SHIFT. ASPIRATION AND FALL PRECAUTIONS IMPLEMENTED
--- NOTE | 2018-02-15 19:40 | NUR ---
RN INITIAL NOTES: RECEIVED REPORT FROM MINESH GUPTA, PT IN BED, AWAKE, A/O X2-3, ON RA RESPIRATION EVEN AND UNLABORED. DENIES ANY PAIN AT THIS TIME. S/P LLE DEBRIDEMENT ON 02/14/18 DRESSING C/D/I. BLE OFFLOADED. IV ACCESS PATENT AND FLUSHING WELL, ON HL. SAFETY PRECAUTIONS FOR FALL INITIATED, CALL LIGHT IN REACH, WILL CONTINUE MONITORING PT.
[2018-02-15] MEDS: VANCOMYCIN 0.75 GM in IV D5W 250 ML IV SCH (20:36)
--- NOTE | 2018-02-15 21:35 | NUR ---
BS 150: BS 150, 2UNITS OF INSULIN GIVEN PER SLIDING SCALE, PT ON CARDIAC DIET TOLERATING PO INTAKE
--- NOTE | 2018-02-15 22:53 | NUR ---
RN NOTES: ASSISTED FEEDING THE PT WITH JELLO, AND JUICE
[2018-02-16] VITALS (8 sets, daily range): BP systolic 98–102; BP diastolic 48–72
--- NOTE | 2018-02-16 01:00 | NUR ---
WOUND CARE: WOUND CARE DONE AT THIS TIME, CLEANSED WITH NS PAT DRY XEROFORM APPLIED COVERED WITH ABD PADS COVERED WITH KERLIX, SECURED WITH TAPE, THEN OFFLOADED ON PILLOWS.
[2018-02-16] MEDS: BLOOD SUGAR DIAGNOSTIC 1 EACH STRIP IN SCH ×4 (05:35→21:47)
[2018-02-16] MEDS: INSULIN REGULAR, HUMAN 100 UNIT/ML 3 ML VIAL SQ PRN ×4 (05:36→21:50)
--- NOTE | 2018-02-16 05:43 | NUR ---
BS 105: BS 105, NO INSULIN COVERAGE GIVEN PER SLIDING SCALE
[2018-02-16 06:26] LABS: BASOPHILS % (AUTO) 0.6 % (0.0-2.0); EOSINOPHILS % (AUTO) 4.9 % (0.0-6.0); HEMATOCRIT 39 % (39-51); HEMOGLOBIN 12.6 g/dL (13.5-17.5); LYMPHOCYTES # (AUTO) 0.4 /CMM (0.8-4.8); LYMPHOCYTES % (AUTO) 9.2 % (20.0-44.0); MEAN CORPUSCULAR HGB CONC 32 g/dl (31.0-36.0); MEAN CORPUSCULAR VOLUME 84 fL (80-96); MONOCYTES # (AUTO) 0.8 /CMM (0.1-1.30); NEUTROPHILS # (AUTO) 2.5 /CMM (1.8-8.9); NEUTROPHILS % (AUTO) 64.3 % (43.0-81.0); PLATELET COUNT (AUTO) 182 /CMM (150-450); RED BLOOD CELL COUNT(AUTO) 4.68 MIL/uL (4.5-6.0); WHITE BLOOD COUNT (AUTO) 3.9 K/uL (4.3-11.0)
[2018-02-16 06:35] LABS: CALCIUM, SERUM 9.1 mg/dL (8.5-10.1); CARBON DIOXIDE 25 mmol/L (21-32); CHLORIDE 101 mmol/L (98-107); CREATININE 1.4 mg/dL (0.6-1.3); GLUCOSE 88 mg/dL (74-106); POTASSIUM 3.7 mmol/L (3.5-5.1); SODIUM SERUM 136 mmol/L (136-145); UREA NITROGEN, BLOOD 39 mg/dL (7-18)
--- NOTE | 2018-02-16 06:46 | NUR ---
RN CLOSING NOTES: PT IN BED, AWAKE, REMAINS CALM AND COOPERATIVE THROUGHOUT THE SHIFT. RESPIRATION EVEN AND UNLABORED. DENIES ANY PAIN OR DISCOMFORT AT THIS TIME. IV ACCESS REMAINS PATENT AND FLUSHING WELL, ON HL. WOUND DRESSING ON LLE REMAINS C/D/I, LLE OFFLOADED. VS REMAINS STABLE, NEEDS ATTENDED. SAFETY PRECAUTIONS FOR FALL REMAINS ENGAGED, CALL LIGHT IN REACH, WILL ENDORSE TO DAY RN FOR JUAN.
--- NOTE | 2018-02-16 07:30 | NUR ---
COREMAKER INITIAL NOTES RECEIVED PATIENT IN BED AWAKE, AOX2, WITH CONFUSION, ABLE TO MAKE NEEDS KNOWN, NO DISTRESS NOTED, ROOM AIR, IN DIAPER, BED IN LOW AND LOCKED POSITION, CALL LIGHT WITHIN REACH, WILL CONTINUE TO MONITOR.
[2018-02-16] MEDS: DIGOXIN 0.125 MG TABLET PO SCH (08:31)
[2018-02-16] MEDS: PANTOPRAZOLE 40 MG TABLET.DR PO SCH (08:31)
[2018-02-16 08:44] LABS: BAND % (MANUAL) 2 % (0.0-5.0); EOSINOPHILS % (MANUAL) 3 % (0-4); LYMPHOCYTES % (MANUAL) 2 % (16-48); MONOCYTES % (MANUAL) 11 % (0-11.0); NEUTROPHILS % (MANUAL) 82 (42-76)
--- NOTE | 2018-02-16 10:38 | NUR ---
WOUND CARE CONSULT WOUND CARE RECEIVED CONSULT FOR LEFT LOWER EXTREMITY CELLULITIS/SKIN ABRASION. WOUND CARE WILL DEFER CONSULT AND ALL TREATMENT PLANS TO SURGICAL TEAM THEY ARE CURRENTLY FOLLOWING. PATIENT WITH ARMANI AT 18, ALL PRESSURE ULCER PREVENTION MEASURES NOTED TO BE IN PLACE AT THIS TIME. WILL SEE PRN.
[2018-02-16] MEDS: ASPIRIN EC 81 MG TABLET.DR PO SCH (13:45)
--- NOTE | 2018-02-16 18:50 | NUR ---
SHEAR GRINDER OPERATOR HELPER END NOTES PATIENT RESTING IN BED, ALL NEEDS ATTENDED TO, WILL ENDORSE TO PENS AND PENCILS DIPPER FOR CONTINUITY OF CARE.
--- NOTE | 2018-02-16 19:26 | NUR ---
MS RN NOTES RECEIVED PT ON BED. A/OX2 WITH EPISODES OF CONFUSION. ON ROOM AIR SATURATING WELL. IV ACCESS ON LFA G20 HL PATENT AND INTACT. HEAD OF BED ELEVATED. SIDE RAILS UP.BED ALARM ON. WILL CONTINUE TO MONITOR PT CLOSELY.
[2018-02-16] MEDS: VANCOMYCIN 0.75 GM in IV D5W 250 ML IV SCH (21:48)
[2018-02-17 04:00] VITALS: BP 96/72
[2018-02-17 06:58] LABS: CALCIUM, SERUM 8.9 mg/dL (8.5-10.1); CARBON DIOXIDE 24 mmol/L (21-32); CHLORIDE 100 mmol/L (98-107); CREATININE 1.3 mg/dL (0.6-1.3); GLUCOSE 83 mg/dL (74-106); POTASSIUM 3.9 mmol/L (3.5-5.1); SODIUM SERUM 135 mmol/L (136-145); UREA NITROGEN, BLOOD 37 mg/dL (7-18)
[2018-02-17 07:12] LABS: BASOPHILS % (AUTO) 0.7 % (0.0-2.0); EOSINOPHILS % (AUTO) 4.1 % (0.0-6.0); HEMATOCRIT 39 % (39-51); HEMOGLOBIN 12.6 g/dL (13.5-17.5); LYMPHOCYTES # (AUTO) 0.4 /CMM (0.8-4.8); LYMPHOCYTES % (AUTO) 9.2 % (20.0-44.0); MEAN CORPUSCULAR HGB CONC 33 g/dl (31.0-36.0); MEAN CORPUSCULAR VOLUME 83 fL (80-96); MONOCYTES # (AUTO) 0.8 /CMM (0.1-1.30); MONOCYTES % (AUTO) 19.6 % (2.0-12.0); NEUTROPHILS # (AUTO) 2.7 /CMM (1.8-8.9); NEUTROPHILS % (AUTO) 66.4 % (43.0-81.0); PLATELET COUNT (AUTO) 198 /CMM (150-450); RDW COEFFICIENT OF VARIATION 19.4 (11.5-15.0); RED BLOOD CELL COUNT(AUTO) 4.64 MIL/uL (4.5-6.0); WHITE BLOOD COUNT (AUTO) 4.1 K/uL (4.3-11.0)
--- NOTE | 2018-02-17 07:18 | NUR ---
MS RN NOTES NO ACUTE CHANGES NOTED DURING THE SHIFT.PROVIDED COMFORT AND SAFETY. WILL ENDORSE TO THE AM NURSE FOR JUAN.
--- NOTE | 2018-02-17 07:32 | NUR ---
MS/RN OPENING NOTE PATIENT IS BED AWAKE. ALERT AND ORIENTED X2. DENIES SOB. RESPIRATION REGULAR AND UNLABORED. DENIES PAIN. LFA G 20 PATENT AND SALINE LOCKED. SIDE RAILS UP X3. CALL LIGHT WITHIN REACH. WILL CONTINUE TO MONITOR.
[2018-02-17 08:00] VITALS: BP 106/58
--- NOTE | 2018-02-17 08:01 | NUR ---
MS/RN NOTE BLOOD SUGAR 100. NO COVERAGE GIVEN.
[2018-02-17 08:06] VITALS: BP 106/58
[2018-02-17] MEDS: BLOOD SUGAR DIAGNOSTIC 1 EACH STRIP IN SCH ×4 (08:38→21:12)
[2018-02-17] MEDS: ASPIRIN EC 81 MG TABLET.DR PO SCH (08:38)
[2018-02-17] MEDS: DIGOXIN 0.125 MG TABLET PO SCH (08:39)
[2018-02-17] MEDS: INSULIN REGULAR, HUMAN 100 UNIT/ML 3 ML VIAL SQ PRN ×2 (12:17→21:11)
[2018-02-17 16:00] VITALS: BP 97/69
[2018-02-17 16:09] VITALS: BP 97/64
--- NOTE | 2018-02-17 17:59 | NUR ---
MS/RN CLOSING NOTE PATIENT ALERT AND ORIENTED X3. DENIES SOB. RESPIRATION REGULAR AND UNLABORED. PATIENT IN ROOM AIR AND OXYGEN SATURATION AT 97%. DENIES PAIN. PATIENT IN NO APPARENT DISTRESS. LFA G 20 PATENT AND SALINE LOCKED. WOUND DRESSING ARE DONE DURING PER ORDER. PATIENT INCONTINENT. GOOD AND GENTLE SKIN CARE RENDERED. KEPT CLEAN, DRY AND COMFORTABLE. ASSISTED WITH TURNING AND REPOSITIONING. BED LOW AND LOCKED. SIDE RAILS UP X3. CALL LIGHT WITHIN REACH. WILL ENDORSE TO OPERATING ROOM COORDINATOR.
--- NOTE | 2018-02-17 19:30 | NUR ---
MS RN OPENING NOTE, PATIENT ALERT AND ORIENTED X2, ABLE TO VERBALIZED NEEDS AND CONCERNS, BREATHING EVEN AND UNLABORED, NO SOB/ACUTE DISTRESS NOTED AT THIS TIME AT ROOM AIR AND OXYGEN SATURATION LEVEL >95% , DENIES PAIN OR DISCOMFORT AT THIS TIME, LFA G 20 PATENT AND SALINE LOCKED INTACT AND PATENT, WOUND DRESSING NOTED DRY AND CLEAN, NO BLEEDING NOTED AT THIS TIME, KEPT CLEAN, DRY, WELL REPOSITIONED AT THIS TIME, BED LOCKED AND IN LOWEST POSITION, CALL LIGHT WITHIN REACH. WILL CONTINUE TO MONITOR CLOSELY.
[2018-02-17 20:00] VITALS: BP 99/68
[2018-02-17] MEDS: VANCOMYCIN 0.75 GM in IV D5W 250 ML IV SCH (21:08)
[2018-02-18 04:00] VITALS: BP 107/72
[2018-02-18 06:24] LABS: BASOPHILS % (AUTO) 0.7 % (0.0-2.0); EOSINOPHILS % (AUTO) 5.9 % (0.0-6.0); HEMATOCRIT 39 % (39-51); HEMOGLOBIN 12.6 g/dL (13.5-17.5); LYMPHOCYTES # (AUTO) 0.3 /CMM (0.8-4.8); LYMPHOCYTES % (AUTO) 8.6 % (20.0-44.0); MEAN CORPUSCULAR HGB CONC 33 g/dl (31.0-36.0); MEAN CORPUSCULAR VOLUME 83 fL (80-96); MONOCYTES # (AUTO) 0.7 /CMM (0.1-1.30); MONOCYTES % (AUTO) 19.2 % (2.0-12.0); NEUTROPHILS # (AUTO) 2.5 /CMM (1.8-8.9); NEUTROPHILS % (AUTO) 65.6 % (43.0-81.0); PLATELET COUNT (AUTO) 187 /CMM (150-450); RDW COEFFICIENT OF VARIATION 19.4 (11.5-15.0); RED BLOOD CELL COUNT(AUTO) 4.64 MIL/uL (4.5-6.0); WHITE BLOOD COUNT (AUTO) 3.8 K/uL (4.3-11.0)
[2018-02-18 06:39] LABS: CALCIUM, SERUM 8.8 mg/dL (8.5-10.1); CARBON DIOXIDE 25 mmol/L (21-32); CHLORIDE 99 mmol/L (98-107); CREATININE 1.3 mg/dL (0.6-1.3); GLUCOSE 97 mg/dL (74-106); MAGNESIUM 1.8 mg/dL (1.8-2.4); PHOSPHORUS 3.5 mg/dL (2.5-4.9); POTASSIUM 3.9 mmol/L (3.5-5.1); SODIUM SERUM 134 mmol/L (136-145); UREA NITROGEN, BLOOD 35 mg/dL (7-18)
--- NOTE | 2018-02-18 06:42 | NUR ---
MS RN CLOSING NOTE, PATIENT SLEEPING AT THIS TIME, BREATHING EVEN AND UNLABORED, NO SOB/ACUTE DISTRESS NOTED AT THIS TIME AT ROOM AIR AND OXYGEN SATURATION LEVEL >95% , NO S/S OF PAIN OR DISCOMFORT AT THIS TIME, LFA G 20 PATENT AND SALINE LOCKED INTACT AND PATENT, KEPT DRY AND CLEAN, NO SIGNIFICANT CHANGE OF CONDITION THROUGHOUT THE NIGHT, WELL REPOSITIONED AT THIS TIME, BED LOCKED AND IN LOWEST POSITION, CALL LIGHT WITHIN REACH. WILL ENDORSE CONTINUITY OF CARE TO ONCOMING NURSE.
--- NOTE | 2018-02-18 07:35 | NUR ---
RN NOTE RECEIVED PATIENT AWAKE IN BED WATCHING T.V. PATIENT ALERT AND ORIENTED X 2-3 WITH EPISODES OF FORGETFULNESS. BREATHING EVEN AND UNLABORED WITH NO DISTRESS NOTED. DENIES ANY PAIN AT THIS TIME. LEFT FA IV SITE INTACT AND PATENT. WILL CONTINUE TO ASSIST PATIENT WITH ANY NEEDS. BED LOW AND LOCKED POSITION. ALL SAFETY MEASURES DONE. PLACED CALL LIGHT WITHIN REACH. WILL CONTINUE TO MONITOR.
[2018-02-18] MEDS: BLOOD SUGAR DIAGNOSTIC 1 EACH STRIP IN SCH ×3 (07:43→17:11)
[2018-02-18] MEDS: PANTOPRAZOLE 40 MG TABLET.DR PO SCH (07:43)
[2018-02-18] MEDS: ASPIRIN EC 81 MG TABLET.DR PO SCH (08:42)
[2018-02-18] MEDS: DIGOXIN 0.125 MG TABLET PO SCH (08:43)
[2018-02-18 08:58] LABS: EOSINOPHILS % (MANUAL) 1 % (0-4); LYMPHOCYTES % (MANUAL) 10 % (16-48); MONOCYTES % (MANUAL) 19 % (0-11.0); NEUTROPHILS % (MANUAL) 70 (42-76)
[2018-02-18] MEDS: INSULIN REGULAR, HUMAN 100 UNIT/ML 3 ML VIAL SQ PRN ×2 (12:05→17:14)
[2018-02-18 16:00] VITALS: BP 111/73
--- NOTE | 2018-02-18 19:28 | NUR ---
RN NOTE 82 YEAR OLD MALE DISCHARGED TO ACUTE REHAB UNIT AT [facility] IN STABLE CONDITION. COMPLIANT WITH MEDICATIONS, COOPERATIVE WITH TREATMENT PLANS. MEDICAL TREATMENT PLANS DEFERRED FOR CONTINUAL MONITORING. EDUCATED PATIENT ABOUT AFTER CARE PLAN AND COPIES PROVIDED. RETURNED PERSONAL BELONGINGS TO PATIENT. MEDICATIONS RECONCILED. REPORT GIVEN TO ALEJANDRO GUPTA AT ACUTE REHAB UNIT AT [facility] FOR CONTINUITY OF CARE. PATIENT SIGNED DISCHARGE PAPERWORK. REMOVED IV SITE, IV CATHETER INTACT. WOUND PICTURES TAKEN AND DOCUMENTED IN CHART. PATIENT LEFT THE UNIT AT 1928 VIA AMBULANCE [facility]
== END 2018-02-18 19:55 | DRG 264 ==
LOC: ER 17:10 → TELE1 20:30 → MEDSG1 02-14 10:04
PROVIDERS: ADMIT Nurse Practitioner Acute Care; ATTEND Nurse Practitioner Acute Care
PROC: 0JBP0ZZ Excision of Left Lower Leg Subcutaneous Tissue and Fascia, Open Approach (ICD-10-PCS; principal; 2018-02-14)
DX: I13.0 Hypertensive heart and chronic kidney disease with heart failure and stage 1 through stage 4 chronic kidney disease, or unspecified chronic kidney disease (principal); I50.23 Acute on chronic systolic (congestive) heart failure; G92 Toxic encephalopathy; I21.4 Non-ST elevation (NSTEMI) myocardial infarction; N17.9 Acute kidney failure, unspecified; L03.116 Cellulitis of left lower limb; D68.59 Other primary thrombophilia; I25.10 Atherosclerotic heart disease of native coronary artery without angina pectoris; E78.5 Hyperlipidemia, unspecified; I48.2 Chronic atrial fibrillation; K21.9 Gastro-esophageal reflux disease without esophagitis; K74.60 Unspecified cirrhosis of liver; L30.4 Erythema intertrigo; R62.7 Adult failure to thrive; N18.9 Chronic kidney disease, unspecified; E11.22 Type 2 diabetes mellitus with diabetic chronic kidney disease; Z91.81 History of falling; Z95.1 Presence of aortocoronary bypass graft; R53.1 Weakness; I35.2 Nonrheumatic aortic (valve) stenosis with insufficiency; I34.0 Nonrheumatic mitral (valve) insufficiency; I36.1 Nonrheumatic tricuspid (valve) insufficiency; E11.51 Type 2 diabetes mellitus with diabetic peripheral angiopathy without gangrene; R74.8 Abnormal levels of other serum enzymes; F03.90 Unspecified dementia, unspecified severity, without behavioral disturbance, psychotic disturbance, mood disturbance, and anxiety; S81.812A Laceration without foreign body, left lower leg, initial encounter; W18.30XA Fall on same level, unspecified, initial encounter; X58.XXXA Exposure to other specified factors, initial encounter; Y93.9 Activity, unspecified; Y92.009 Unspecified place in unspecified non-institutional (private) residence as the place of occurrence of the external cause; Z95.810 Presence of automatic (implantable) cardiac defibrillator
CPT/HCPCS: 36415; 70450-TC; 71045-TC; 80048-TC; 80061-TC; 80076-TC; 80162-TC; 80202-TC; 81000-TC; 82962-TC; 83690-TC; 83735-TC; 83880; 84100-TC; 84439-TC; 84443-TC; 84484-TC; 85025-TC; 87081-TC; 87086-TC; 93970-TC; 97116-TC; 97530-TC; A4606; A6253; A6402; A6403; G0480; J1815; J1940; J3370; J7030; J7050; J7060; Z7610